=== PATIENT | female | born 1955 | race Caucasian/White ===

== ENCOUNTER 2020-01-07 10:23 | Inpatient (IN) | payer OTHER, MEDICAID, SELFPAY ==
[~2020-01-07] VITALS: Ht 160 cm; Wt 61.7 kg
--- NOTE | 2020-01-07 10:23 | NUR ---
Patient KASANDRA from [facility], transferred to bed 6. RN evaluating patient at bedside.
[2020-01-07 10:29] VITALS: BP 140/80
--- NOTE | 2020-01-07 10:39 | NUR ---
dr wright at bedside evaluating pt.
--- NOTE | 2020-01-07 10:40 | NUR ---
ro from [facility] c/o LLQ pain this morning , denies n/v .no meds given pain level at facility is 810 . pmhx cva left sided, dm , htn. allergic to pcn, iodine, hydrocone, sulfa drugs.
[2020-01-07] MEDS ORDERED: NACL 0.9% 1,000 ML IV ONE (10:49)
[2020-01-07] MEDS ORDERED: MORPHINE SULFATE 2 MG/ML SYR IVP ONE (10:50)
[2020-01-07 11:18] LABS: BASOPHILS # (AUTO) 0.1 K/uL (0.00-0.22); BASOPHILS % (AUTO) 0.8 % (0.0-2.0); EOSINOPHILS % (AUTO) 0.4 % (0.0-4.0); HEMATOCRIT 34.8 % (36-48); HEMOGLOBIN 11.4 g/dL (12.0-16.0); LYMPHOCYTES # (AUTO) 3.8 K/uL (2.5-16.5); LYMPHOCYTES % (AUTO) 39.3 % (20.5-51.1); MEAN CORPUSCULAR HEMOGLOBIN 29 pg (27-31); MEAN CORPUSCULAR HGB CONC 33 g/dL (33-37); MEAN CORPUSCULAR VOLUME 89.8 fL (80-94); MONOCYTES # (AUTO) 0.6 K/uL (0.8-1.0); MONOCYTES % (AUTO) 6.5 % (1.7-9.3); NEUTROPHILS # (AUTO) 5.1 K/uL (1.8-7.7); PLATELET COUNT (AUTO) 277 K/uL (140-450); RED BLOOD CELL COUNT(AUTO) 3.88 MIL/uL (4.20-5.40); RED CELL DISTRIBUTION WIDTH 15.2 % (11.6-13.7); WHITE BLOOD COUNT (AUTO) 9.6 K/uL (4.8-10.8)
--- NOTE | 2020-01-07 11:25 | NUR ---
pt to ct scan via [place].
--- NOTE | 2020-01-07 11:33 | NUR ---
pt back from ct scan via [facility] .
[2020-01-07 11:35] LABS: APPEARANCE,URINE CLOUDY (CLEAR); BILIRUBIN,URINE NEGATIVE (NEGATIVE); BLOOD, URINE 1+ (NEGATIVE); COLOR,URINE YELLOW (YELLOW); LEUKOCYTE ESTERASE ,URINE 2+ (NEGATIVE); NITRITE, URINE POSITIVE (NEGATIVE); UGLUCOSE NEGATIVE (NEGATIVE)
[2020-01-07 11:58] LABS: ALBUMIN 2.7 g/dL (3.4-5.0); ANION GAP 10.8 (8-16); CARBON DIOXIDE 29.9 mmol/L (21-32); CREATININE 0.5 mg/dL (0.6-1.3); POTASSIUM 4.7 mmol/L (3.5-5.1); TOTAL BILIRUBIN 0.3 mg/dL (0.0-1.0)
[2020-01-07 11:59] LABS: RBC,URINE 11-20 (MOD) /HPF (0-5); WBC,URINE TOO MANY TO COUNT /HPF (0-5)
--- NOTE | 2020-01-07 12:15 | NUR ---
DEANNA Seo called pt family regarding admission to [facility]. PT family will call her later to talk and check up on her. pt notified PMD Dr. Tsang at bedside for eval.
--- NOTE | 2020-01-07 12:17 | NUR ---
covid swab done.
--- NOTE | 2020-01-07 12:21 | NUR ---
dr whitmore at bedside evaluating pt.
[2020-01-07] MEDS ORDERED: DULO30EC PO ×2 (12:24→15:10)
[2020-01-07] MEDS ORDERED: DIVA250T PO ×2 (12:25→15:10)
[2020-01-07] MEDS ORDERED: TRAM50TA1 PO ×2 (12:28→15:10)
[2020-01-07] MEDS ORDERED: ATOR20TA PO ×2 (12:29→15:10)
[2020-01-07] MEDS ORDERED: METF850T PO ×2 (12:29→15:10)
[2020-01-07] MEDS ORDERED: LEVE1000 PO ×2 (12:30→15:10)
[2020-01-07] MEDS ORDERED: LACT10SO1 PO (12:32)
[2020-01-07] MEDS ORDERED: HUM SUBQ (12:33)
[2020-01-07] MEDS ORDERED: LYR75 PO (12:33)
[2020-01-07] MEDS ORDERED: BENA20TA PO (12:34)
[2020-01-07] MEDS ORDERED: SODI100076 PO (12:35)
[2020-01-07] MEDS ORDERED: SENN-72 PO (12:36)
[2020-01-07] MEDS ORDERED: MULT-2112 PO (12:37)
[2020-01-07] MEDS ORDERED: ACET-2214 PO (12:39)
[2020-01-07] MEDS ORDERED: cefTRIAXone 1,000 MG VIAL ONE (12:45)
[2020-01-07] MEDS ORDERED: ONDANSETRON 4 MG/2 ML VIAL IM/IVP PRN (12:55)
[2020-01-07] MEDS ORDERED: MORPHINE SULFATE 2 MG/ML SYR IVP PRN (12:55)
[2020-01-07] MEDS ORDERED: ACETAMINOPHEN 325 MG TAB PO PRN (12:55)
[2020-01-07] MEDS ORDERED: INSULIN LISPRO SLIDING SCALE 100 UNITS/ML VIAL SUBQ PRN (14:00)
[2020-01-07] MEDS ORDERED: HYDROcodone/APAP 5/325 MG 1 TAB TAB PO PRN (14:00)
[2020-01-07] MEDS ORDERED: LORazepam 2 MG/ML VIAL IVP PRN (14:00)
[2020-01-07] MEDS ORDERED: DEXTROSE 50% 50 ML SYR IVP PRN (14:00)
[2020-01-07 14:16] LABS: FREE T4 (FREE THYROXINE) 1.09 ng/dL (0.76-1.46); MAGNESIUM 1.6 mg/dL (1.8-2.4); PHOSPHORUS 3.7 mg/dL (2.5-4.9); THYROID STIMULATING HORMONE 3.81 uIU/mL (0.34-3.74)
[2020-01-07 14:23] LABS: PROTHROMBIN TIME 9.9 secs (10.8-13.4)
--- NOTE | 2020-01-07 15:10 | NUR ---
cassidy at bedside.
[2020-01-07] MEDS: NACL 0.9% 1,000 ML IV SCH (15:24)
--- NOTE | 2020-01-07 16:09 | NUR ---
pt comfortable in bed awake , alert, afibrile. v/s at stable. side rails up x2 and lock at lowest position.
--- NOTE | 2020-01-07 16:44 | NUR ---
PT SENT TO [facility] WITH DEANNA LOPEZ
--- NOTE | 2020-01-07 16:50 | NUR ---
PATIENT ADMITTED TO [facility] FROM ED VIA GURNEY. PATIENT IS AWAKE AND ALERT, ORIENTED X2. RESP EVEN AND UNLABORED ON ROOM AIR. DROPLET PRECAUTION APPLIED TO R/O COVID 19. PATIENT DENIES OF SOB. INITIAL VITALS 97.3 73 18 121/62 98% RA. LEFT HAND 22 NOTED, PATENT WITH NS 60ML/HR. SKIN IS INTACT. PATIENT IS PLEASANT AND COOPERATIVE THROUGHOUT THE ADMISSION PROCESS. MRSA NARES COLLECTED. CALL LIGHT WITHIN REACH, BED IN LOW POSITION. PATIENT TEACHING ON HOW TO OPERATE THE CALL LIGHT AND BED. ENCOURAGED PATIENT TO CALL NURSE NEEDED. WILL CONTINUE TO MONITOR.
--- NOTE | 2020-01-07 16:50 | NUR ---
Patient will be admitted to care of dr mcmahon. Admited to M/S. Will go to room 121 b. Belongings list completed. Report to edson maldonado.
[2020-01-07] MEDS: LACTULOSE 20 GM/30 ML UDC PO SCH (17:00)
--- NOTE | 2020-01-07 17:25 | NUR ---
PATIENT WAS ASKED ABOUT HER ALLERGY TO HYDROCORDONE. PATIENT STATED SHE HAD TAKEN NORCO BEFORE AND WAS FEELING DIZZY RIGHT AFTER. SPOKE TO PHARMACY ABOUT HER ALLERGIES.
[2020-01-07] MEDS: BLOOD GLUCOSE MONITORING 1 DEV DEV FS SCH ×2 (18:00→21:18)
--- NOTE | 2020-01-07 19:30 | NUR ---
RECEIVED BEDSIDE REPORT FROM DAY SHIFT NURSE. PT IS AWAKE AND ALERT, ORIENTED X2. RESP EVEN AND UNLABORED ON ROOM AIR. DROPLET PRECAUTION IN PLACE COVID19 R/O. IV SITE ON LEFT HAND 22G, PATENT, INTACT, ASYMPTOMATIC. SKIN IS INTACT, DRY TO TOUCH. CALL LIGHT WITHIN REACH, BED IN LOW POSITION. WILL CONTINUE TO MONITOR.
--- NOTE | 2020-01-07 19:30 | NUR ---
ENDORSED PATIENT TO NIGHT NURSE. PATIENT IN STABLE CONDITION.
--- NOTE | 2020-01-07 20:00 | NUR ---
REPORTED TO RESIDENT DR FOR LAB RESULT, MAG 1.6
[2020-01-07 20:46] VITALS: BP 121/62
[2020-01-07] MEDS: levETIRAcetam 500 MG TAB PO SCH (20:58)
[2020-01-07] MEDS: DIVALPROEX 250 MG TABEC PO SCH (20:58)
[2020-01-07] MEDS: metFORMIN 850 MG TAB PO SCH (20:58)
[2020-01-07] MEDS: ATORVASTATIN 20 MG TAB PO SCH (20:59)
[2020-01-07] MEDS: PREGABALIN 25 MG CAP PO SCH (20:59)
[2020-01-07] MEDS: SENNA 8.6 MG TAB PO SCH (21:00)
[2020-01-07] MEDS: DULoxetine 30 MG CAPDR PO SCH (21:00)
--- NOTE | 2020-01-07 21:18 | NUR ---
BS CHECKED, 111. NO INSULIN COVERAGE NEEDED. GIVEN DEPAKOTE, METFORMIN, KEPPRA, LIPITOR, AND LYRICA MD ORDERED. PT REFUSED CYMBALTA AND SENNA, EXPLAINED BENEFIT AND RISK 3X, PT STILL REFUSED. Addendum: 01/07/20 at 2227 by Bonilla Brian RN PT C/O HEADACHE, GIVEN TYLENOL MD ORDERED. PT TOLERATED WELL.
--- NOTE | 2020-01-07 22:22 | NUR ---
PT SLEEPING IN BED COMFORTABLY. NO ACUTE DISTRESS NOTED.
[2020-01-08] VITALS: BP 136/70
[2020-01-08] MEDS ORDERED: MAG SULF 2000 MG/WATER PREMIX 50 ML IV SCH ×2 (01:20→14:00)
--- NOTE | 2020-01-08 01:38 | NUR ---
GIVEN MAG YU MD ORDERED. PT TOLERATED WELL.
--- NOTE | 2020-01-08 01:39 | NUR ---
VS WITHIN PT'S BASELINE. WILL CONTINUE TO MONITOR.
--- NOTE | 2020-01-08 03:56 | NUR ---
PT SLEEPING IN BED COMFORTABLY. NO ACUTE DISTRESS NOTED.
[2020-01-08] MEDS: BLOOD GLUCOSE MONITORING 1 DEV DEV FS SCH ×4 (06:13→21:46)
[2020-01-08] MEDS: NACL 0.9% 1,000 ML IV SCH ×2 (06:13→23:08)
--- NOTE | 2020-01-08 06:14 | NUR ---
BS CHECKED, 80. NO INSULIN COVERAGE NEEDED.
--- NOTE | 2020-01-08 07:20 | NUR ---
RECEIVED PT FROM BANBURY OPERATOR NURSE. PT IS CURRENTLY SLEEPING IN BED WITH NO SIGNS OF DISTRESS AT THIS TIME. RESPIRATIONS ARE EVEN AND UNLABORED ON ROOM AIR. WITH NO SIGNS OF DISTRESS. SKIN IS INTACT WITH IV ASYMPTOMATIC PATENT AND INFUSING PER ORDERS. BED IS IN LOW, SEMI-FOWLERS POSITION, CALL LIGHT WITHIN REACH, SAFETY MEASURES IN PLACE AND WILL CONTINUE TO MONITOR.
--- NOTE | 2020-01-08 07:28 | NUR ---
PT IN STABLE CONDITION. ENDORSED PT TO DAY SHIFT NURSE FOR CONTINUOUS CARE.
[2020-01-08 07:44] LABS: CHOL/HDL RATIO 3.3 (1-4.5)
[2020-01-08 08:00] VITALS: BP 127/59
[2020-01-08] MEDS: PREGABALIN 25 MG CAP PO SCH ×2 (09:08→22:04)
[2020-01-08] MEDS: SENNA 8.6 MG TAB PO SCH ×2 (09:08→22:05)
[2020-01-08] MEDS: BENAZEPRIL 20 MG TAB PO SCH (09:08)
[2020-01-08] MEDS: metFORMIN 850 MG TAB PO SCH ×2 (09:08→17:09)
[2020-01-08] MEDS: DULoxetine 30 MG CAPDR PO SCH ×2 (09:09→22:03)
[2020-01-08] MEDS: levETIRAcetam 500 MG TAB PO SCH ×2 (09:09→22:06)
[2020-01-08] MEDS: LACTULOSE 20 GM/30 ML UDC PO SCH ×3 (09:09→17:00)
[2020-01-08] MEDS: DIVALPROEX 250 MG TABEC PO SCH ×2 (09:13→22:05)
--- NOTE | 2020-01-08 09:15 | NUR ---
ADMINISTERED MEDICATIONS PER ORDER AND TOLERATED WELL. PATIENT IS ABOUT TO EAT BREAKFAST AND NEEDED ASSISTANCE OPENING UP THE SYRUP. SAFETY MEASURES IN PLACE AND WILL CONTINUE TO MONITOR.
--- NOTE | 2020-01-08 09:24 | NUR ---
OVERCOILER NOTE: Patient's Orientation Person Situation Place Time Information Provided By TARIQ Lake RN Filleter, Realtionship and Phone Number SHAWN URIBE [phone] Healthcare Power of Chargemaster Specialist No Does Patient Have a POLST No Identifying Problems No Social Work Triggers Is A Social Work Consult Needed No Mandate Report Filed No Explanation Of Identifying Problems PATIENT IS A 64-YEAR-OLD FEMALE ADMITTED FOR ABDOMINAL PAIN. PATIENT HAS PMHX OF DIABETES, SEIZURE DISORDER, AND HYPERTENSION. Admitted From Longterm Facility Longterm Facility [facility] - [phone] Pre-Admission Level Of Functioning Status Total Care Prior Resources/Services Used In Last 12 Months SNF Longterm Care Prior Resources/Service Comments PATIENT IS FPC AND ON A BED HOLD. Prior DME Hospital Bed Patient Had Caregiver No Home Support No Caregiver Issues Financial Issues No Known Financial Issue Factors/Needs SNF/NH Placement Discharge Plan Comments TENTATIVE DISCHARGE PLAN IS FOR PATIENT TO RETURN TO [facility]. DC Plan Status Initiated
--- NOTE | 2020-01-08 09:42 | NUR ---
PATIENT HAS BEEN SCREENED AND CATEGORIZED HIGH NUTRITION RISK. PATIENT WILL BE SEEN WITHIN 1-2 DAYS OF ADMISSION. -01/09/[address]
--- NOTE | 2020-01-08 10:05 | NUR ---
PT IS CURRENTLY FINISHING UP EATING BREAKFAST WITH NO SIGNS OF DISTRESS SAFETY MEASURES IN PLACE AND WILL CONTINUE TO MONITOR.
--- NOTE | 2020-01-08 11:55 | NUR ---
PT BLOOD SUGAR IS CURRENTLY 79 THEREFORE NO INSULIN COVERAGE IS NEEDED. SAFETY MEASURES IN PLACE AND WILL CONTINUE TO MONITOR.
--- NOTE | 2020-01-08 12:45 | NUR ---
ADMINISTERED MEDICATIONS PER ORDER AND TOLERATED WELL. PATIENT IS CURRENTLY SLEEPING WITH NO SIGNS OF DISTRESS AT THIS TIME. PT STATED THAT SHE DID NOT WANT HER LACTULOSE SHE CAN USE THE RESTROOM FINE. SAFETY MEASURES IN PLACE AND WILL CONTINUE TO MONITOR.
--- NOTE | 2020-01-08 13:56 | NUR ---
DC [age]ANN[age] YRS OLD FEMALE PATIENT WAS ADMITTED FROM [facility] WITH A DX OF ABDOMINAL PAIN . PATIENT HAS A HX OF CVA WITH LEFT HEMIPLEGIA AND HEMIPARESIS, AND DM. PT IS BEDBOUND WITH CONTRACTURES. CT ABD/PELVIS SHOWED CHOLELITHIASIS ,COLONIC DIVERTICULOSIS. ULTRASOUND OF ABDOMEN IS PENDING. CXR SHOWED NEGATIVE FOR PNEUMONIA. COVID TEST PENDING FOR FACILITY PLACEMENT. URINE AND BLOOD CULTURE PENDING. ADMINISTERED IVF, IV ABX ROCEPHIN AND CONTINUED HOME MEDS. DC PLAN TO GO BACK TO [facility] WHEN STABLE. CM TO FOLLOW. Addendum: 01/09/20 at 1108 by Tori Darnell CM SPOKE TO ADMISSIONS AT [facility] TO CLARIFY HOW MANY COVID TEST NEED TO BE DONE BEFORE PATIENT CAN DISCHARGE BACK. THEY STATED ONLY ONE NEGATIVE COVID TEST IS NEEDED Addendum: 01/10/20 at 1033 by Trixie Grady CM RECEIVED AN ORDER FOR DC BACK TO [facility] FOR PO ANTIBIOTICS. CONTACTED [facility] AT [phone], ABLE TO SPEAK TO EM. REQUESTED TO BE TRANSFERRED TO ADMISSIONS. PER EM THEY DO NOT HAVE ADMISSIONS TODAY AND THEY HAVE A NEW ONE. WHEN ASK WHO WILL BE PROCESSING THE ADMISSIONS, SHE STATED TO CONTACT THE [facility]ICA [facility] AT [phone] DIRECTLY. CONTACTED THE PROVIDED NUMBER, NO ANSWER. LEFT MESSAGE. WILL FOLLOW UP. CONTACTED PATIENT'S DAUGHTER MARIE MALIK AT [phone], TO DISCUSS DC PLAN AND IS IN AGREEMENT. IMM LETTER DISCUSSED WELL, NO CONCERNS OR QUESTIONS RAISED AT THIS TIME. Addendum: 01/10/20 at 1036 by Trixie Grady CM CONTACTED MOOKIE ELEUTERIO DAVEY AT [facility] AT [phone], NO ANSWER. LEFT MESSAGE. WILL FOLLOW UP. Addendum: 01/10/20 at 1052 by Trixie Grady CM RECEIVED A CALL BACK FROM CONNOR DAVEY OF [facility], STATING TO SEND THE ORDER. INFORMED HER THAT I SENT IT EARLIER AND I HAVE CONFIRMATION. SHE STATED ITS NOT ON HER SYSTEM YET, BUT WILL GO AHEAD AND INFORM THE FACILITY SINCE SHE IS NOT IN THE FACILITY AT OF THE MOMENT. SHE ALSO CONFIRMED THAT THEY DO NOT HAVE AN ADMISSION PERSON ANYMORE. Addendum: 01/10/20 at 1226 by Trixie Grady CM CONTACTED [facility]'S DON TO FOLLOW UP ON THE BED AND ACCEPTING DOC, NO ANSWER. LEFT MESSAGE. Addendum: 01/10/20 at 1240 by Trixie Grady CM RECEIVED A CALL BACK FROM CONNOR AT [facility], PATIENT WILL GO TO ROOM 10B UNDER DR. MULLEN. PER BERMUDEZ OF [facility], GERMINATION TESTING MANAGER WILL BE AT 1430. DR. GREEN AND CHARGE NURSE MADE AWARE. CONTACTED PATIENT'S DAUGHTER MARIE MALIK, NO ANSWER. LEFT VOICEMAIL.
--- NOTE | 2020-01-08 14:20 | NUR ---
ADMINISTERED MEDICATIONS PER ORDER AND TOLERATED WELL. PATIENT IS CURRENTLY EATING ICE CREAM WITH NO SIGNS OF DISTRESS. SAFETY MEASURES IN PLACE AND WILL CONTINUE TO MONITOR.
--- NOTE | 2020-01-08 14:38 | NUR ---
01/08/20 RD INITIAL ASSESSMENT COMPLETED PLEASE REFER TO NUTRITION ASSESSMENT UNDER CARE ACTIVITY FOR ESTIMATED NUTRITIONAL NEEDS. 1. CONTINUE CCHO 60GM DIET TOLERATED 2. IF PO INTAKE FALLS <75% CONSIDER GLUCERNA BID 3. RD TO FOLLOW-UP 3-5 DAYS, MODERATE RISK ANA MARIA HERNANDEZ, RD
--- NOTE | 2020-01-08 15:59 | NUR ---
PT IS CURRENTLY SLEEPING WITH NO SIGNS OF DISTRESS. PT DID NOT EAT HER LUNCH AND STATED THAT SHE IS TIRED. SAFETY MEASURES IN PLACE AND WILL CONTINUE TO MONITOR.
[2020-01-08 16:00] VITALS: BP 127/58
--- NOTE | 2020-01-08 17:14 | NUR ---
ADMINISTERED MEDICATIONS PER ORDER AND TOLERATED WELL. PT REFUSED HER LACTULOSE AND STATED THAT SHE CAN USE THE RESTROOM FINE WITHOUT ANY HELP. SAFETY MEASURES IN PLACE AND WILL CONTINUE TO MONITOR.
--- NOTE | 2020-01-08 18:17 | NUR ---
PATIENT IS CURRENTLY SLEEPING WITH NO SIGNS OF DISTRESS. DINNER IS AT BEDSIDE. SAFETY MEASURES IN PLACE AND WILL CONTINUE OT MONITOR.
--- NOTE | 2020-01-08 19:05 | NUR ---
RECEIVED BEDSIDE REPORT FROM DAY SHIFT NURSE. PT IS SLEEPING IN BED IN SEMI FOWLERS POSITION WITH NO SIGNS OF DISTRESS. PT IS ON RA AND BREATHING IS EVEN AND UNLABORED. SKIN IS WARM, DRY, AND INTACT. IV IS INFUSING IN THE LEFT HAND 22 GAUGE WITH NS AT 60 ML PER HOUR PER DOCTORS ORDER. BED IS IN THE LOWEST POSITION AND CALL LIGHT IS WITHIN REACH. PT HAS THE COVID 19 TEST RESULTS PENDING AT THE MOMENT. PLAN OF CARE WAS DISCUSSED AND WILL CONTINUE WITH PLAN OF CARE.
--- NOTE | 2020-01-08 19:18 | NUR ---
GAVE REPORT TO ADJUNCT POLITICAL SCIENCE INSTRUCTOR NURSE FOR CONTINUITY OF CARE. PT IS CURRENTLY SITTING IN BED WITH NO SIGNS OF DISTRESS.
--- NOTE | 2020-01-08 21:00 | NUR ---
PT IS ASLEEP AND CALM. NO DISTRESS NOTED. CHEST RISE AND FALL IS SYMMETRICAL. NO APPARENT SIGNS OF DISTRESS. WILL CONTINUE TO MONITOR.
[2020-01-08] MEDS: ATORVASTATIN 20 MG TAB PO SCH (22:11)
--- NOTE | 2020-01-08 23:36 | NUR ---
PT IS AWAKE AND A&O X 2. PT VOIDED AND HER CHUCKS AND LINENS WERE CHANGED. SHE IS ON RA AND HER RESPIRATIONS ARE UNLABORED. PT IS STABLE AT THIS TIME. WILL CONTINUE TO MONITOR.
[2020-01-09] VITALS: BP 133/53
--- NOTE | 2020-01-09 00:30 | NUR ---
INFORMED DR. MULLEN THAT COVID 19 TEST WAS NEGATIVE AND THAT THERE NEEDED TO BE AN ORDER FOR ANOTHER COVID 19 TEST IN ORDER TO DISCHARGE PT TO SNF. DR. MULLEN PUT IN THE ORDER FOR THE COVID 19 TEST. PT WAS INFORMED ABOUT THE PROCEDURE AND WAS SWABBED FOR COVID 19. PT TOLERATED THE TEST WELL.
--- NOTE | 2020-01-09 01:20 | NUR ---
CALLED DR. MULLEN TO INFORM HER THAT PT'S DAUGHTER WOULD LIKE TO SPEAK TO THE DOCTOR FOR AN UPDATE. DR. MULLEN WILL FOLLOW UP WITH PT'S DAUGHTER. Addendum: 01/09/20 at 0403 by Malena Webster RN DR. MULLEN SAID THAT IT IS NIGHT TIME AND THAT SHE WILL BE ENDORSING TO THE AM SHIFT TOMORROW.
--- NOTE | 2020-01-09 03:30 | NUR ---
PT IS ASLEEP AND NO DISTRESS IS NOTED. BED IS IN LOWEST POSITION AND CALL LIGHT IS WITHIN REACH. WILL CONTINUE TO MONITOR.
--- NOTE | 2020-01-09 05:13 | NUR ---
PT IS AWAKE AND ALERT. A& O X 2. NO APPARENT SIGNS OF DISTRESS. PT DENIES ANY PAIN. BED IS IN LOWEST POSITION AND CALL LIGHT IS WITHIN REACH.
[2020-01-09] MEDS: BLOOD GLUCOSE MONITORING 1 DEV DEV FS SCH ×4 (05:55→20:57)
--- NOTE | 2020-01-09 05:55 | NUR ---
PT'S BLOOD SUGAR READING WAS 119. NO INSULIN COVERAGE NEEDED PER SLIDING SCALE.
--- NOTE | 2020-01-09 07:00 | NUR ---
TRIED TO CALL DAUGHTER ДМИТРИЙ TO TELL HER THAT WE HAVE INFORMED THE DOCTOR THAT SHE WANTS AN UPDATE AND LEFT HER NO. TO THEM. PLS. CALL US ALSO IF YOU DON'T HEAR FROM THE DR,
--- NOTE | 2020-01-09 07:02 | NUR ---
PT AWAKE, O X 2, AWAITING 2ND COVID TEST RESULT. PT IN STABLE CONDITION AT THIS TIME. WILL ENDORSE TO NEXT SHIFT FOR CONTINUITY OF CARE.
[2020-01-09 07:32] LABS: BASOPHILS % (AUTO) 0.2 % (0.0-2.0); EOSINOPHILS % (AUTO) 0.5 % (0.0-4.0); HEMATOCRIT 33.5 % (36-48); HEMOGLOBIN 10.8 g/dL (12.0-16.0); LYMPHOCYTES # (AUTO) 2.3 K/uL (2.5-16.5); LYMPHOCYTES % (AUTO) 22.9 % (20.5-51.1); MEAN CORPUSCULAR HEMOGLOBIN 29 pg (27-31); MEAN CORPUSCULAR HGB CONC 32 g/dL (33-37); MEAN CORPUSCULAR VOLUME 90.4 fL (80-94); MONOCYTES # (AUTO) 0.6 K/uL (0.8-1.0); MONOCYTES % (AUTO) 5.9 % (1.7-9.3); NEUTROPHILS # (AUTO) 6.9 K/uL (1.8-7.7); NEUTROPHILS % (AUTO) 70.5 % (42.2-75.2); PLATELET COUNT (AUTO) 277 K/uL (140-450); RED CELL DISTRIBUTION WIDTH 15.2 % (11.6-13.7); WHITE BLOOD COUNT (AUTO) 9.9 K/uL (4.8-10.8)
[2020-01-09 08:00] VITALS: BP 114/54
--- NOTE | 2020-01-09 08:00 | NUR ---
RECEIVED REPORT FROM PM RN. RESTING BED. NO SIGNS OF DISTRESS. PT IS ON RA. NS RUNNING AT 60ML LT HAND IV 22G. CALL LIGHT WITHIN REACH. BED IN LOWEST POSITION. WILL CONTINUE TO MONITOR.
[2020-01-09 08:04] LABS: ALBUMIN 2.7 g/dL (3.4-5.0); ANION GAP 11.6 (8-16); CARBON DIOXIDE 28.1 mmol/L (21-32); CREATININE 0.4 mg/dL (0.6-1.3); POTASSIUM 3.7 mmol/L (3.5-5.1); TOTAL BILIRUBIN 0.2 mg/dL (0.0-1.0)
[2020-01-09] MEDS: LACTULOSE 20 GM/30 ML UDC PO SCH ×4 (09:00→17:00)
[2020-01-09] MEDS: SENNA 8.6 MG TAB PO SCH ×2 (09:40→20:25)
[2020-01-09] MEDS: LACTOBACILLUS RHAMNOSUS GG 1 EACH CAP PO SCH (09:40)
[2020-01-09] MEDS: DIVALPROEX 250 MG TABEC PO SCH ×2 (09:40→20:26)
[2020-01-09] MEDS: DULoxetine 30 MG CAPDR PO SCH ×2 (09:40→20:26)
[2020-01-09] MEDS: PREGABALIN 25 MG CAP PO SCH ×2 (09:41→20:26)
[2020-01-09] MEDS: levETIRAcetam 500 MG TAB PO SCH ×2 (09:41→20:26)
[2020-01-09] MEDS: BENAZEPRIL 20 MG TAB PO SCH (09:42)
[2020-01-09] MEDS: metFORMIN 850 MG TAB PO SCH ×2 (09:45→17:54)
--- NOTE | 2020-01-09 10:00 | NUR ---
PT RESTING IN BED WITH EYES OPEN. RESPIRATION EVEN AND UNLABORED. NO SIGNS OF DISTRESS. WILL CONTINUE TO MONITOR.
[2020-01-09] MEDS: CHLORHEXADINE GLUC 2% CLOTH TP SCH (11:00)
[2020-01-09] MEDS: MUPIROCIN CA NASAL 2% 1GM TUBE NS SCH (11:59)
--- NOTE | 2020-01-09 12:20 | NUR ---
PT IS RESTING IN BED. NO COMPLAINTS OF PAIN. NO SIGNS OF DISTRESS. PT BLOOD SUGAR 131. PT TOLERATED MEDICATION WELL. WILL CONTINUE TO MONITOR.
[2020-01-09] MEDS ORDERED: MAGNESIUM OXIDE 400 MG TAB PO PRN (13:35)
[2020-01-09] MEDS ORDERED: POTASSIUM CHLORIDE 10 MEQ TABER PO PRN (13:35)
[2020-01-09] MEDS: NACL 0.9% 1,000 ML IV SCH (14:51)
[2020-01-09] MEDS ORDERED: NACL 0.9% 500 ML IV ONE (16:05)
[2020-01-09] MEDS ORDERED: NACL 0.9% 500 ML IV SCH (16:06)
[2020-01-09 16:08] VITALS: BP 80/37
[2020-01-09 16:45] VITALS: BP 104/44
--- NOTE | 2020-01-09 17:59 | NUR ---
PT RESTING IN BED AT THIS TIME. BLOOD SUGAR 113. NO INSULIN COVERAGE NEEDED.
--- NOTE | 2020-01-09 18:07 | NUR ---
PT STATES SHE DOES NOT EAT MEAT. PT IS PLACED ON VEGETARIAN DIET.
--- NOTE | 2020-01-09 19:10 | NUR ---
RECEIVED BEDSIDE REPORT FROM DAY SHIFT NURSE. PATIENT IS AWAKE, ALERT, AND COOPERATIVE. RESPIRATION EVEN UNLABORED ON ROOM AIR. DISTRESS NOTED. SKIN IS WARM AND DRY. IV PATENT AND INTACT. PLAN OF CARE WAS DISCUSSED. ALL SAFETY MEASURES IN PLACE. BED IS AT LOW POSITION. CALL LIGHT WITHIN REACH. WILL CONTINUE TO MONITOR.
--- NOTE | 2020-01-09 19:15 | NUR ---
Report given to pm nurse Kisses.
[2020-01-09] MEDS: ATORVASTATIN 20 MG TAB PO SCH (20:26)
--- NOTE | 2020-01-09 20:26 | NUR ---
ALL SCHEDULED MEDS WERE GIVEN PER ORDER. NO ASE NOTED. WILL CONTINUE TO MONITOR.
--- NOTE | 2020-01-09 22:59 | NUR ---
CHECKED PATIENT. PATIENT SLEEPING RESPIRATION EVEN UNLABORED ON ROOM AIR. NO DISTRESS NOTED. WILL CONTINUE TO MONITOR.
[2020-01-10] VITALS: BP 119/54
--- NOTE | 2020-01-10 00:10 | NUR ---
VITALS WERE TAKEN. PATIENT IN STABLE CONDITION. NO DISTRESS NOTED. WILL CONTINUE TO MONITOR.
--- NOTE | 2020-01-10 03:49 | NUR ---
CHECKED PATIENT. PATIENT SLEEPING RESPIRATION EVEN UNLABORED ON ROOM AIR. NO DISTRESS NOTED. WILL CONTINUE TO MONITOR.
[2020-01-10] MEDS: BLOOD GLUCOSE MONITORING 1 DEV DEV FS SCH ×3 (06:35→17:11)
--- NOTE | 2020-01-10 07:10 | NUR ---
RECEIVED PATIENT FROM STITCH CLEANER NURSE. PATIENT IS CURRENTLY LAYING IN BED ASLEEP. RESPIRATIONS ARE EVEN AND UNLABORED ON ROOM AIR WITH NO DIFFICULTIES BREATHING. SKIN IS INTACT WITH IV ASYMPTOMATIC, PATENT AND INFUSING PER ORDERS. SAFETY MEASURES IN PLACE, BED IS IN LOW SEMI-FOWLERS POSITION, CALL LIGHT WITHIN REACH AND WILL CONTINUE TO MONITOR.
--- NOTE | 2020-01-10 07:12 | NUR ---
ENDORSED PATIENT TO DAY SHIFT NURSE. PATIENT IN STABLE CONDITION.
[2020-01-10 07:20] LABS: BASOPHILS % (AUTO) 0.4 % (0.0-2.0); EOSINOPHILS % (AUTO) 0.6 % (0.0-4.0); HEMATOCRIT 29.5 % (36-48); HEMOGLOBIN 9.6 g/dL (12.0-16.0); LYMPHOCYTES # (AUTO) 3.6 K/uL (2.5-16.5); LYMPHOCYTES % (AUTO) 61.1 % (20.5-51.1); MEAN CORPUSCULAR HEMOGLOBIN 29 pg (27-31); MEAN CORPUSCULAR HGB CONC 32 g/dL (33-37); MEAN CORPUSCULAR VOLUME 89.8 fL (80-94); MONOCYTES # (AUTO) 0.3 K/uL (0.8-1.0); MONOCYTES % (AUTO) 5.4 % (1.7-9.3); NEUTROPHILS # (AUTO) 1.9 K/uL (1.8-7.7); NEUTROPHILS % (AUTO) 32.5 % (42.2-75.2); PLATELET COUNT (AUTO) 226 K/uL (140-450); RED BLOOD CELL COUNT(AUTO) 3.29 MIL/uL (4.20-5.40); RED CELL DISTRIBUTION WIDTH 15.3 % (11.6-13.7); WHITE BLOOD COUNT (AUTO) 5.9 K/uL (4.8-10.8)
[2020-01-10 07:30] LABS: ANION GAP 6.1 (8-16); CARBON DIOXIDE 29.8 mmol/L (21-32); CREATININE 0.4 mg/dL (0.6-1.3); POTASSIUM 3.9 mmol/L (3.5-5.1)
[2020-01-10] MEDS: NACL 0.9% 1,000 ML IV SCH (07:31)
[2020-01-10 08:00] VITALS: BP 133/56
[2020-01-10] MEDS: DULoxetine 30 MG CAPDR PO SCH (08:47)
[2020-01-10] MEDS: LACTULOSE 20 GM/30 ML UDC PO SCH ×3 (08:47→17:00)
[2020-01-10] MEDS: PREGABALIN 25 MG CAP PO SCH (08:48)
[2020-01-10] MEDS: LACTOBACILLUS RHAMNOSUS GG 1 EACH CAP PO SCH (08:49)
[2020-01-10] MEDS: levETIRAcetam 500 MG TAB PO SCH (08:49)
[2020-01-10] MEDS: SENNA 8.6 MG TAB PO SCH (08:49)
[2020-01-10] MEDS: metFORMIN 850 MG TAB PO SCH ×2 (08:49→17:19)
[2020-01-10] MEDS: BENAZEPRIL 20 MG TAB PO SCH (08:50)
[2020-01-10] MEDS: DIVALPROEX 250 MG TABEC PO SCH (08:50)
--- NOTE | 2020-01-10 09:05 | NUR ---
ADMINISTERED MEDICATIONS PER ORDER AND TOLERATED WELL. PATIENT IS CURRENTLY EATING AT BEDSIDE WITH NO DIFFICULTIES. SAFETY MEASURES IN PLACE, CALL LIGHT WITHIN REACH AND WILL CONTINUE TO MONITOR.
[2020-01-10] MEDS ORDERED: LEVO750T2 PO (09:50)
--- NOTE | 2020-01-10 10:57 | NUR ---
PHYSICAL THERAPY CAME TO SEE PATIENT AT THIS TIME. PATIENT IS AWAKE AND WATCHING TV AT THIS TIME. SAFETY MEASURES IN PLACE AND WILL CONTINUE TO MONITOR
[2020-01-10] MEDS: CHLORHEXADINE GLUC 2% CLOTH TP SCH (11:00)
--- NOTE | 2020-01-10 11:53 | NUR ---
BLOOD SUGARS CHECKED TO BE 107. NO INSULIN COVERAGE NEEDED. PATIENT RESTING COMFORTABLY IN BED, IN NO S/S RESPIRATORY DISTRESS. CALL LIGHT WITHIN REACH, WILL CONTINUE TO MONITOR.
[2020-01-10] MEDS: MUPIROCIN CA NASAL 2% 1GM TUBE NS SCH (12:02)
--- NOTE | 2020-01-10 12:07 | NUR ---
ADMINISTERED MEDICATIONS PER ORDER AND TOLERATED WELL. PT IS CURRENTLY LAYING DOWN WATCHING TV. SAFETY MEASURES IN PLACE AND WILL CONTINUE TO MONITOR
--- NOTE | 2020-01-10 12:15 | NUR ---
PATIENT REFUSED TO TAKE HER LACTULOSE AND STATES THAT SHE CAN USE THE RESTROOM JUST FINE. SAFETY MEASURES IN PLACE AND WILL CONTINUE TO MONITOR.
[2020-01-10 13:13] VITALS: BP 133/56
--- NOTE | 2020-01-10 13:14 | NUR ---
REPORT GIVEN TO EM AT [facility] REGARDING PATIENT STATUS AND THE TREATMENT SHE RECEIVED HERE, AND THAT PT WILL BE PICKED UP AT 1430. EM VERBALIZED UNDERSTANDING, NO FURTHER QUESTIONS ASKED.
[2020-01-10] MEDS ORDERED: MUPI2CRE22 NS (13:28)
[2020-01-10] MEDS ORDERED: CHLO118S2 TP (13:28)
--- NOTE | 2020-01-10 14:48 | NUR ---
DISCHARGE PAPERWORK HAS BEEN SIGNED BY PATIENT. SAFETY MEASURES IN PLACE AND PATIENT IS WAITING TO BE PICKED UP AND TAKEN BACK TO [facility].
[2020-01-10 16:00] VITALS: BP 121/63
--- NOTE | 2020-01-10 16:31 | NUR ---
PATIENT IS CURRENTLY AWAITING FOR TRANSPORT TO ARRIVE IN ORDER TO GO TO [facility]. SAFETY MEASURES IN PLACE AND WILL CONTINUE TO MONITOR.
--- NOTE | 2020-01-10 17:01 | NUR ---
BLOOD SUGAR TAKEN TO BE 105. NO INSULIN COVERAGE NEEDED. ALL NEEDS MET, CALL LIGHT WITHIN REACH, WILL CONTINUE TO MONITOR.
--- NOTE | 2020-01-10 17:31 | NUR ---
ADMINISTERED MEDICATIONS PER ORDER AND TOLERATED WELL. PATIENT IS CURRENTLY LAYING IN BED WATCHING TV WITH NO SIGNS OF DISTRESS. WAITING FOR TRANSPORT TO COMPUTER PROGRAMMER PATIENT.
--- NOTE | 2020-01-10 19:26 | NUR ---
DISCHARGE PATIENT TO [facility] VIA [facility]. PATIENT IS CURRENTLY ON ROOM AIR WITH NO DIFFICULTIES BREATHING. SKIN IS INTACT WITH IV TAKEN OUT WITH LUMEN IN INTACT AND MINIMAL BLOOD LOSS. ID BANDS HAVE COLLEEN REMOVED. DISCHARGE TEACHING, MEDICATION ADHERENCE AND MD FOLLOW UP HAVE BEEN EXPLAINED TO PATIENT. GAVE REPORT TO EM. NO FURTHER HAVE BEEN ASKED AND PATIENT VERBALIZED UNDERSTANDING. SAFETY MEASURES IN PLACE AND VITAL SIGNS STABLE.
== END 2020-01-10 18:35 | DRG 444 ==
LOC: MED 10:23 → MTU 12:24 → EEVIPCON 12:24
PROVIDERS: ADMIT General Practice; ATTEND General Practice
DX: K80.70 Calculus of gallbladder and bile duct without cholecystitis without obstruction (principal); E43 Unspecified severe protein-calorie malnutrition; N39.0 Urinary tract infection, site not specified; J98.11 Atelectasis; I69.354 Hemiplegia and hemiparesis following cerebral infarction affecting left non-dominant side; E72.20 Disorder of urea cycle metabolism, unspecified; K72.90 Hepatic failure, unspecified without coma; Z68.24 Body mass index [BMI] 24.0-24.9, adult; Z20.828 Contact with and (suspected) exposure to other viral communicable diseases; G40.909 Epilepsy, unspecified, not intractable, without status epilepticus; Z96.642 Presence of left artificial hip joint; D64.9 Anemia, unspecified; E11.40 Type 2 diabetes mellitus with diabetic neuropathy, unspecified; R47.02 Dysphasia; G89.4 Chronic pain syndrome; K57.90 Diverticulosis of intestine, part unspecified, without perforation or abscess without bleeding; E83.42 Hypomagnesemia; Z88.5 Allergy status to narcotic agent; Z88.0 Allergy status to penicillin; Z88.2 Allergy status to sulfonamides; Z91.041 Radiographic dye allergy status; Z79.84 Long term (current) use of oral hypoglycemic drugs; Z79.899 Other long term (current) drug therapy; Z90.710 Acquired absence of both cervix and uterus; Z82.3 Family history of stroke
CPT/HCPCS: 36415; 71045; 76705; 80048; 80053; 81001; 82140; 82150; 82948; 83036; 83605; 83615; 83690; 83735; 83880; 84100; 84134; 84439; 84443; 84484; 85025; 85379; 85610; 85651; 85730; 86140; 87040; 87081; 87086; 96361; 96365; 96375; 97110; 97112; 97161-GP; 99285; J0696; J1644; J2270; J3475; J7030; J7042; J7060; Q0092; U0003-CS